=== PATIENT | male | born 1950 | race Two or more races ===

== ENCOUNTER 2017-11-19 03:07 | Emergency (ER) | payer OTHER, MEDICAID ==
[~2017-11-19] VITALS: Ht 172.7 cm; Wt 78.0 kg
--- NOTE | 2017-11-19 03:15 | NUR ---
67 YO MALE BB RA FROM HOME. C/O ABD/ FLANK PAIN. PATIENT HAS A HISTORY OF KIDNEY STONES, HE THINKS ITS A KIDNEY STONE. PATIENT ASSISTED TO ER BED, SKIN IS WARM AND DRY, RESP EVEN AND UNLABORED. AWAITING ORDERS FROM PROVIDER
[2017-11-19] MEDS ORDERED: ONDANSETRON HCL/PF 4 MG/2 ML VIAL ONE (03:16)
[2017-11-19] MEDS ORDERED: MORPHINE SULFATE INJ 4 MG/ML DISP.SYRIN ONE (03:16)
--- NOTE | 2017-11-19 03:25 | NUR ---
URINE SAMPLE OBTAINED AND SENT TO LAB
--- NOTE | 2017-11-19 03:27 | NUR ---
18G LEFT AC IV STARTED, BLOOD SAMPLE OBTAINED AND SENT TO LAB. MEDICATED PT ORDERED
[2017-11-19] MEDS ORDERED: MORPHINE SULFATE INJ 2 MG/ML DISP.SYRIN IV ONE (03:30)
[2017-11-19] MEDS ORDERED: ONDANSETRON HCL/PF 4 MG/2 ML VIAL IVP ONE (03:30)
[2017-11-19] MEDS ORDERED: IV NS 0.9% 1,000 ML BAG IV ONE (03:30)
[2017-11-19 03:39] LABS: BASOPHILS # (AUTO) 0.1 /CMM (0.0-0.2); BASOPHILS % (AUTO) 0.5 % (0.0-2.0); EOSINOPHILS % (AUTO) 0.7 % (0.0-6.0); HEMATOCRIT 49 % (39-51); HEMOGLOBIN 16.8 g/dL (13.5-17.5); LYMPHOCYTES # (AUTO) 1.9 /CMM (0.8-4.8); LYMPHOCYTES % (AUTO) 17.6 % (20.0-44.0); MEAN CORPUSCULAR HEMOGLOBIN 33 PG (26.0-33.0); MEAN CORPUSCULAR HGB CONC 34 g/dl (31.0-36.0); MEAN CORPUSCULAR VOLUME 96 fL (80-96); MONOCYTES # (AUTO) 0.5 /CMM (0.1-1.30); MONOCYTES % (AUTO) 4.8 % (2.0-12.0); NEUTROPHILS # (AUTO) 8.2 /CMM (1.8-8.9); NEUTROPHILS % (AUTO) 76.4 % (43.0-81.0); PLATELET COUNT (AUTO) 188 /CMM (150-450); RDW COEFFICIENT OF VARIATION 13.5 (11.5-15.0); RED BLOOD CELL COUNT(AUTO) 5.07 MIL/uL (4.5-6.0); WHITE BLOOD COUNT (AUTO) 10.7 K/uL (4.3-11.0)
[2017-11-19 03:41] LABS: APPEARANCE,URINE CLEAR (CLEAR); BILIRUBIN,URINE NEGATIVE (NEGATIVE); BLOOD, URINE 3+ Ery/uL (NEGATIVE); COLOR,URINE YELLOW (YELLOW); KETONES,URINE NEGATIVE (NEGATIVE); LEUKOCYTE ESTERASE ,URINE NEGATIVE (NEGATIVE); NITRITE, URINE NEGATIVE (NEGATIVE); PH,URINE 7.5 (5.0-8.0); PROTEIN,URINE TRACE mg/dl (NEGATIVE); UGLUCOSE NEGATIVE (NEGATIVE); UROBILINOGEN,URINE 0.2 EU/dL (0.2)
[2017-11-19 03:54] LABS: BACTERIA,URINE Few /HPF (None Seen); RBC,URINE 51-80 /HPF (0-2); SQUAMOUS EPITHELIAL CELL,UR Rare /HPF (None Seen); WBC,URINE 0-2 /HPF (0-3)
--- NOTE | 2017-11-19 03:54 | NUR ---
PATIENT TRANSPORTED TO CT VIA GURNEY BY RADIOLOGY TEAM
[2017-11-19 03:57] LABS: ALBUMIN 3.9 g/dL (3.4-5.0); BILIRUBIN,DIRECT 0.1 mg/dL (0.0-0.2); BILIRUBIN,TOTAL 0.7 mg/dL (0.2-1.0); CALCIUM, SERUM 8.6 mg/dL (8.5-10.1); CREATININE 1.3 mg/dL (0.6-1.3); POTASSIUM 4.3 mmol/L (3.5-5.1)
[2017-11-19 05:14] VITALS: BP 127/86
--- NOTE | 2017-11-19 05:15 | NUR ---
Patient discharged to home in stable condition. Written and verbal after care instructions given. Patient verbalizes understanding of instruction.IV removed. Catheter intact and site benign. Pressure and 4x4 applied to site. No bleeding noted. PT ambulatory with a steady gait
== END 2017-11-19 05:15 | disposition home or self-care (01) ==
LOC: ER 03:11
DX: N20.0 Calculus of kidney (principal)
CPT/HCPCS: 36415; 74176; 80048; 80076; 81001; 83690; 85025; 96374; 96375; 99285; A4606; J2270; J2405; J7030; 81000-TC; Z7610

== ENCOUNTER 2017-12-12 14:41 | Emergency (ER) | payer OTHER, MEDICAID ==
[~2017-12-12] VITALS: Ht 172.7 cm; Wt 77.1 kg
[2017-12-12 15:31] LABS: BASOPHILS # (AUTO) 0.1 /CMM (0.0-0.2); BASOPHILS % (AUTO) 0.8 % (0.0-2.0); EOSINOPHILS % (AUTO) 3.3 % (0.0-6.0); HEMATOCRIT 50 % (39-51); LYMPHOCYTES # (AUTO) 2.6 /CMM (0.8-4.8); LYMPHOCYTES % (AUTO) 32.6 % (20.0-44.0); MEAN CORPUSCULAR HEMOGLOBIN 32 PG (26.0-33.0); MEAN CORPUSCULAR HGB CONC 34 g/dl (31.0-36.0); MEAN CORPUSCULAR VOLUME 94 fL (80-96); MONOCYTES # (AUTO) 0.6 /CMM (0.1-1.30); MONOCYTES % (AUTO) 7.8 % (2.0-12.0); NEUTROPHILS # (AUTO) 4.4 /CMM (1.8-8.9); NEUTROPHILS % (AUTO) 55.5 % (43.0-81.0); PLATELET COUNT (AUTO) 199 /CMM (150-450); RDW COEFFICIENT OF VARIATION 12.9 (11.5-15.0); RED BLOOD CELL COUNT(AUTO) 5.28 MIL/uL (4.5-6.0)
[2017-12-12 15:40] LABS: APPEARANCE,URINE Clear (CLEAR); BILIRUBIN,URINE Negative (NEGATIVE); BLOOD, URINE Moderate Ery/uL (NEGATIVE); COLOR,URINE Yellow (YELLOW); KETONES,URINE Negative (NEGATIVE); LEUKOCYTE ESTERASE ,URINE Negative (NEGATIVE); NITRITE, URINE Negative (NEGATIVE); PROTEIN,URINE Negative (NEGATIVE); UGLUCOSE Negative (NEGATIVE); UROBILINOGEN,URINE 0.2 EU/dL (0.2)
[2017-12-12 15:44] LABS: BACTERIA,URINE Few /HPF (None Seen); SQUAMOUS EPITHELIAL CELL,UR Few /HPF (None Seen); WBC,URINE 0-2 /HPF (0-3)
[2017-12-12 15:56] LABS: CALCIUM, SERUM 9.1 mg/dL (8.5-10.1); POTASSIUM 3.8 mmol/L (3.5-5.1)
[2017-12-12] MEDS ORDERED: KETOROLAC TROMETHAMINE INJ 60 MG/2 ML VIAL IM ONE (16:00)
[2017-12-12] MEDS ORDERED: KETOROLAC TROMETHAMINE 15 MG/ML VIAL ONE (16:03)
== END 2017-12-12 16:14 | disposition home or self-care (01) ==
LOC: ER 14:48
DX: R31.9 Hematuria, unspecified (principal); E78.00 Pure hypercholesterolemia, unspecified; M19.90 Unspecified osteoarthritis, unspecified site; F17.210 Nicotine dependence, cigarettes, uncomplicated; Z87.442 Personal history of urinary calculi; Z60.2 Problems related to living alone
CPT/HCPCS: 36415; 80048-TC; 81000-TC; 85025-TC; J1885

== ENCOUNTER 2018-01-10 12:50 | Emergency (ER) | payer OTHER, MEDICAID ==
[~2018-01-10] VITALS: Ht 167.6 cm; Wt 77.1 kg
--- NOTE | 2018-01-10 13:00 | NUR ---
aaox3, BBRA FROM HOME FOR LEFT LOWER ABD PAIN, LEFT FLANK PAIN X 2 WEEKS H/O KIDNEY STONE. Resp is even and unlabored with NAD noted. Skin is warm and dry. Awaiting md for eval.
[2018-01-10] MEDS ORDERED: KETOROLAC TROMETHAMINE INJ 30 MG/ML VIAL ONE (13:30)
[2018-01-10] MEDS ORDERED: KETOROLAC TROMETHAMINE INJ 30 MG/ML VIAL IM ONE (13:30)
[2018-01-10 14:01] LABS: BASOPHILS # (AUTO) 0.1 /CMM (0.0-0.2); BASOPHILS % (AUTO) 1.1 % (0.0-2.0); EOSINOPHILS % (AUTO) 3.4 % (0.0-6.0); HEMATOCRIT 46 % (39-51); HEMOGLOBIN 15.7 g/dL (13.5-17.5); LYMPHOCYTES # (AUTO) 1.9 /CMM (0.8-4.8); LYMPHOCYTES % (AUTO) 22.3 % (20.0-44.0); MEAN CORPUSCULAR HEMOGLOBIN 33 PG (26.0-33.0); MEAN CORPUSCULAR HGB CONC 34 g/dl (31.0-36.0); MEAN CORPUSCULAR VOLUME 97 fL (80-96); MONOCYTES # (AUTO) 0.5 /CMM (0.1-1.30); MONOCYTES % (AUTO) 5.7 % (2.0-12.0); NEUTROPHILS # (AUTO) 5.6 /CMM (1.8-8.9); NEUTROPHILS % (AUTO) 67.5 % (43.0-81.0); PLATELET COUNT (AUTO) 209 /CMM (150-450); RDW COEFFICIENT OF VARIATION 13.9 (11.5-15.0); WHITE BLOOD COUNT (AUTO) 8.3 K/uL (4.3-11.0)
[2018-01-10 14:11] LABS: CALCIUM, SERUM 8.2 mg/dL (8.5-10.1); POTASSIUM 3.5 mmol/L (3.5-5.1)
[2018-01-10 14:57] LABS: APPEARANCE,URINE Clear (CLEAR); BILIRUBIN,URINE Negative (NEGATIVE); BLOOD, URINE Moderate Ery/uL (NEGATIVE); COLOR,URINE Yellow (YELLOW); KETONES,URINE Negative (NEGATIVE); LEUKOCYTE ESTERASE ,URINE Negative (NEGATIVE); NITRITE, URINE Negative (NEGATIVE); PROTEIN,URINE Negative (NEGATIVE); UGLUCOSE Negative (NEGATIVE); UROBILINOGEN,URINE 0.2 EU/dL (0.2)
[2018-01-10 15:05] LABS: BACTERIA,URINE Few /HPF (None Seen); SQUAMOUS EPITHELIAL CELL,UR Few /HPF (None Seen); WBC,URINE 0-2 /HPF (0-3)
--- NOTE | 2018-01-10 15:31 | NUR ---
Patient discharged to home in stable condition. Written and verbal after care instructions given. Patient verbalizes understanding of instruction.
[2018-01-10 15:33] VITALS: BP 140/78
== END 2018-01-10 15:33 | disposition home or self-care (01) ==
LOC: ER 12:51
DX: N23 Unspecified renal colic (principal); F17.200 Nicotine dependence, unspecified, uncomplicated; M19.90 Unspecified osteoarthritis, unspecified site; Z60.2 Problems related to living alone
CPT/HCPCS: 36415; 80048; 81001; 85025; 96372; 99284; 99406; A4606; J1885; 81000-TC; Z7610

== ENCOUNTER 2018-06-05 10:48 | Emergency (ER) | payer OTHER, MEDICAID ==
[~2018-06-05] VITALS: Ht 172.7 cm; Wt 76.7 kg
[2018-06-05 10:53] VITALS: BP 129/95
[2018-06-05] MEDS ORDERED: IBUPROFEN 400 MG TABLET ONE (11:08)
[2018-06-05] MEDS ORDERED: IBUPROFEN 400 MG TABLET PO ONE (11:30)
== END 2018-06-05 11:50 | disposition home or self-care (01) ==
LOC: ER 10:56
DX: S83.412A Sprain of medial collateral ligament of left knee, initial encounter (principal); F17.200 Nicotine dependence, unspecified, uncomplicated; M19.90 Unspecified osteoarthritis, unspecified site; Z87.442 Personal history of urinary calculi; Z60.2 Problems related to living alone; W01.0XXA Fall on same level from slipping, tripping and stumbling without subsequent striking against object, initial encounter; Y93.89 Activity, other specified; Y92.89 Other specified places as the place of occurrence of the external cause; Y99.8 Other external cause status
CPT/HCPCS: 73564-TC

== ENCOUNTER 2018-07-23 23:02 | Emergency (ER) | payer MEDICARE, MEDICAID ==
[~2018-07-23] VITALS: Ht 172.7 cm; Wt 75.3 kg
[2018-07-23 23:24] VITALS: BP 155/77
--- NOTE | 2018-07-23 23:25 | NUR ---
URINE SPECIMEN OBTAINED AND SENT TO THE LAB.
--- NOTE | 2018-07-23 23:25 | NUR ---
NEVIN C/O "HAVE BLOOD IN URINE SINCE 4PM" -SOB -N.V -DIZZY -ACUTE DISTRESS 0/10 PAIN.
[2018-07-23 23:38] LABS: BILIRUBIN,URINE NEGATIVE (NEGATIVE); BLOOD, URINE 3+ Ery/uL (NEGATIVE); KETONES,URINE NEGATIVE (NEGATIVE); LEUKOCYTE ESTERASE ,URINE NEGATIVE (NEGATIVE); NITRITE, URINE NEGATIVE (NEGATIVE); PROTEIN,URINE NEGATIVE (NEGATIVE); UGLUCOSE NEGATIVE (NEGATIVE); UROBILINOGEN,URINE 0.2 EU/dL (0.2)
[2018-07-23 23:48] LABS: APPEARANCE,URINE HAZY (CLEAR)
[2018-07-23 23:49] LABS: COLOR,URINE Light yellow (YELLOW)
[2018-07-23 23:54] LABS: BACTERIA,URINE None seen /HPF (None Seen); RBC,URINE 21-50 /HPF (0-2); SQUAMOUS EPITHELIAL CELL,UR Few /HPF (None Seen); WBC,URINE 0-2 /HPF (0-3)
== END 2018-07-24 00:13 | disposition home or self-care (01) ==
LOC: ER 23:05
DX: R31.9 Hematuria, unspecified (principal); F17.200 Nicotine dependence, unspecified, uncomplicated; Z87.442 Personal history of urinary calculi; Z98.890 Other specified postprocedural states; Z60.2 Problems related to living alone
CPT/HCPCS: 81000-TC

== ENCOUNTER 2019-06-07 14:16 | Emergency (ER) | payer MEDICARE, MEDICAID ==
[~2019-06-07] VITALS: Ht 170.2 cm; Wt 77.1 kg
[2019-06-07 14:39] VITALS: BP 140/73
--- NOTE | 2019-06-07 14:47 | NUR ---
PT AAOX4. AMBULATORY WITH STEADY GAIT. BIBSELF, C/O "Cough/congestion/body aches/Flu like symptoms x2 days." VSS. JHOAN FOR FOR EVAL. WILL CONTINUE TO MONITOR.
--- NOTE | 2019-06-07 15:02 | NUR ---
INF SENT TO LAB
--- NOTE | 2019-06-07 16:16 | NUR ---
PT LYSSA TO [facility].
== END 2019-06-07 16:51 | disposition home or self-care (01) ==
LOC: ER 14:16
DX: J20.9 Acute bronchitis, unspecified (principal); F17.200 Nicotine dependence, unspecified, uncomplicated; Z87.442 Personal history of urinary calculi; Z98.890 Other specified postprocedural states; Z60.2 Problems related to living alone
CPT/HCPCS: 71045-TC

== ENCOUNTER 2021-01-20 10:55 | Emergency (ER) | payer OTHER ==
[~2021-01-20] VITALS: Ht 170.2 cm; Wt 79.4 kg
--- NOTE | 2021-01-20 10:55 | NUR ---
PT BIBRA 89 FROM HOME C/O L ARM PAIN STARTED THIS MORNING. PT AAOX4. NOT IN RESPIRATORY DISTRESS, V/S STABLE, KEPT RESTED AND COMFORTABLE.WILL CONTINUE TO MONITOR.
--- NOTE | 2021-01-20 11:13 | NUR ---
AT BEDSIDE FOR EVAL.
[2021-01-20] MEDS ORDERED: NITROGLYCERIN 0.4 MG/TAB BOTTLE ONE (11:23)
[2021-01-20] MEDS ORDERED: ASPIRIN 325 MG TABLET ONE (11:23)
--- NOTE | 2021-01-20 11:25 | NUR ---
ER PHLEB AT BEDSIDE FOR BLOOD DRAW.
--- NOTE | 2021-01-20 11:29 | NUR ---
SPACE BUYER AT BEDSIDE FOR XRAY.
[2021-01-20] MEDS ORDERED: NITROGLYCERIN 0.4 MG/TAB BOTTLE SL ONE (11:30)
[2021-01-20] MEDS ORDERED: ASPIRIN 325 MG TABLET PO ONE (11:30)
[2021-01-20] MEDS ORDERED: ATOR40TA PO (11:45)
[2021-01-20] MEDS ORDERED: ERGO500093 PO (11:45)
[2021-01-20 11:49] LABS: BASOPHILS % (AUTO) 0.8 % (0.0-2.0); EOSINOPHILS % (AUTO) 2.9 % (0.0-6.0); HEMATOCRIT 48 % (39-51); HEMOGLOBIN 16.4 g/dL (13.5-17.5); LYMPHOCYTES # (AUTO) 2.2 K/uL (0.8-4.8); LYMPHOCYTES % (AUTO) 35.6 % (20.0-44.0); MEAN CORPUSCULAR HGB CONC 34 g/dl (31.0-36.0); MEAN CORPUSCULAR VOLUME 97 fL (80-96); MONOCYTES # (AUTO) 0.5 K/uL (0.1-1.30); MONOCYTES % (AUTO) 7.9 % (2.0-12.0); NEUTROPHILS # (AUTO) 3.2 K/uL (1.8-8.9); NEUTROPHILS % (AUTO) 52.8 % (43.0-81.0); PLATELET COUNT (AUTO) 186 K/uL (150-450); RED BLOOD CELL COUNT(AUTO) 4.94 MIL/uL (4.5-6.0); WHITE BLOOD COUNT (AUTO) 6.1 K/uL (4.3-11.0)
[2021-01-20 11:58] LABS: CALCIUM, SERUM 8.3 mg/dL (8.5-10.1); CREATININE 0.8 mg/dL (0.6-1.3); POTASSIUM 3.6 mmol/L (3.5-5.1)
[2021-01-20 12:03] LABS: ALBUMIN 3.6 g/dL (3.4-5.0); BILIRUBIN,DIRECT 0.2 mg/dL (0.0-0.2); BILIRUBIN,TOTAL 0.7 mg/dL (0.2-1.0); TOTAL PROTEIN, SERUM 6.7 g/dL (6.4-8.2)
--- NOTE | 2021-01-20 12:18 | NUR ---
MOVE SHEET SUBMITTED AND CALLED FOR TELE BED.
--- NOTE | 2021-01-20 13:30 | NUR ---
SPOKED TO [employer] BUS TRANSPORTATION MANAGER. WILL CALL BACK FOR TRANSFER INFO TO [facility].
[2021-01-20 14:32] VITALS: BP 142/71
--- NOTE | 2021-01-20 14:32 | NUR ---
Patient does not wish to proceed with medical care recommended by Dr. Rico. Patient given information related to possible complications, up to and including , which could occur as a result of leaving the hospital at this time. Patient verbalizes understanding of risks involved due to leaving against medical advice. Patient has signed AMA form.
== END 2021-01-20 14:33 | disposition left against medical advice (07) ==
LOC: ER 11:00
DX: M79.602 Pain in left arm (principal); F17.200 Nicotine dependence, unspecified, uncomplicated; E78.00 Pure hypercholesterolemia, unspecified; R03.0 Elevated blood-pressure reading, without diagnosis of hypertension; R91.8 Other nonspecific abnormal finding of lung field; Z20.822 Contact with and (suspected) exposure to COVID-19; M19.90 Unspecified osteoarthritis, unspecified site; Z79.899 Other long term (current) drug therapy
CPT/HCPCS: 36415; 71045; 80048; 80076; 84484; 85025; 87081; 87426; 93005; 99285; C9803

== ENCOUNTER 2022-01-13 03:42 | Emergency (ER) | payer OTHER ==
[~2022-01-13] VITALS: Ht 165.1 cm; Wt 80.7 kg
[~2022-01-13 03:42] MED LIST: ATOR40TA PO; ERGO500093 PO
--- NOTE | 2022-01-13 03:53 | NUR ---
CRISTY FROM HOME C/O PER PATIENT "I WOKE UP AND FELT ARM PAIN AND NECK PAIN, SO I CALLED 911" PT STATES NAN ARM PAIN. PT A/OX4. TOLERATING R/A WELL WITH NO SOB. SAFETY MEASURES IN PLACE.
[2022-01-13] MEDS ORDERED: HYDROCODONE/APAP 5/325MG TABLET PO ONE (04:00)
--- NOTE | 2022-01-13 04:07 | NUR ---
taken to CT
[2022-01-13] MEDS ORDERED: HYDROCODONE/APAP 5/325MG TABLET ONE (04:13)
--- NOTE | 2022-01-13 04:46 | NUR ---
Awaitng ride from granddaughter for D/C. Patient given written and verbal instrructions, verbalizes understanding of instruction. PT ambulatory with a steady gait
[2022-01-13 04:48] VITALS: BP 145/81
--- NOTE | 2022-01-13 05:16 | NUR ---
Patient discharged to home in stable condition with granddaughter. Written and verbal after care instructions given. Patient verbalizes understanding of instruction. PT ambulatory with a steady gait
== END 2022-01-13 05:16 | disposition home or self-care (01) ==
LOC: ER 03:44
DX: M50.30 Other cervical disc degeneration, unspecified cervical region (principal); M19.90 Unspecified osteoarthritis, unspecified site; E78.00 Pure hypercholesterolemia, unspecified; F17.200 Nicotine dependence, unspecified, uncomplicated; Z98.890 Other specified postprocedural states; Z79.899 Other long term (current) drug therapy
CPT/HCPCS: 72125-TC

== ENCOUNTER 2022-01-20 09:45 | Emergency (ER) | payer OTHER ==
[~2022-01-20] VITALS: Ht 170.2 cm; Wt 78.9 kg
--- NOTE | 2022-01-20 10:18 | NUR ---
IV GAUGE 20 L HAND
--- NOTE | 2022-01-20 10:18 | NUR ---
BIB DAUGHTER, C/O PAIN BACK AND NECK AREA AND COLD GIVEN TWO WARM BLANKETS
[2022-01-20] MEDS ORDERED: HYDROCODONE/APAP 5/325MG TABLET ONE (10:38)
[2022-01-20] MEDS ORDERED: KETOROLAC TROMETHAMINE INJ 30 MG/ML VIAL ONE (10:39)
[2022-01-20] MEDS ORDERED: CYCLOBENZAPRINE 10 MG TABLET ONE (10:39)
[2022-01-20] MEDS ORDERED: KETOROLAC TROMETHAMINE INJ 60 MG/2 ML VIAL IM ONE (11:00)
[2022-01-20] MEDS ORDERED: CYCLOBENZAPRINE 10 MG TABLET PO ONE (11:00)
[2022-01-20] MEDS ORDERED: HYDROCODONE/APAP 5/325MG TABLET PO ONE (11:00)
[2022-01-20] MEDS ORDERED: CYCL5TAB PO (12:11)
[2022-01-20 12:30] VITALS: BP 181/86
== END 2022-01-20 12:30 | disposition home or self-care (01) ==
LOC: ER 09:50
DX: M47.812 Spondylosis without myelopathy or radiculopathy, cervical region (principal); M19.90 Unspecified osteoarthritis, unspecified site; Z98.890 Other specified postprocedural states; Z79.899 Other long term (current) drug therapy
CPT/HCPCS: 99283; 96372; J1885

== ENCOUNTER 2022-11-16 08:27 | Inpatient (IN) | payer OTHER ==
[~2022-11-16] VITALS: Ht 170.2 cm; Wt 78.5 kg
[~2022-11-16 08:27] MED LIST changes: +CYCL5TAB PO
--- NOTE | 2022-11-16 08:40 | NUR ---
at bedside for eval
--- NOTE | 2022-11-16 08:42 | NUR ---
blood sample obtained sent to lab
--- NOTE | 2022-11-16 08:42 | NUR ---
established iv line 18 g left forearm. infusing well
[2022-11-16] MEDS ORDERED: IV NS 0.9% 1,000 ML BAG IV ONE (09:00)
--- NOTE | 2022-11-16 09:17 | NUR ---
RAPID / COVID SWAB TAKEN SENT TO LAB
[2022-11-16 09:19] LABS: BASOPHILS # (AUTO) 0.1 K/uL (0.0-0.2); BASOPHILS % (AUTO) 0.7 % (0.0-2.0); EOSINOPHILS % (AUTO) 0.3 % (0.0-6.0); HEMATOCRIT 50 % (39-51); HEMOGLOBIN 16.6 g/dL (13.5-17.5); LYMPHOCYTES # (AUTO) 2.4 K/uL (0.8-4.8); LYMPHOCYTES % (AUTO) 19.3 % (20.0-44.0); MEAN CORPUSCULAR HGB CONC 33 g/dl (31.0-36.0); MEAN CORPUSCULAR VOLUME 97 fL (80-96); MONOCYTES # (AUTO) 0.7 K/uL (0.1-1.30); MONOCYTES % (AUTO) 5.6 % (2.0-12.0); NEUTROPHILS # (AUTO) 9.1 K/uL (1.8-8.9); NEUTROPHILS % (AUTO) 74.1 % (43.0-81.0); PLATELET COUNT (AUTO) 179 K/uL (150-450); RED BLOOD CELL COUNT(AUTO) 5.14 MIL/uL (4.5-6.0); WHITE BLOOD COUNT (AUTO) 12.3 K/uL (4.3-11.0)
[2022-11-16 09:34] LABS: CALCIUM, SERUM 8.9 mg/dL (8.5-10.1); CARBON DIOXIDE 22 mmol/L (21-32); CHLORIDE 107 mmol/L (98-107); CREATININE 1.4 mg/dL (0.6-1.3); GLUCOSE 137 mg/dL (74-106); POTASSIUM 3.4 mmol/L (3.5-5.1); SODIUM SERUM 140 mmol/L (136-145); UREA NITROGEN, BLOOD 14 mg/dL (7-18)
[2022-11-16 09:39] LABS: ALANINE AMINOTRANSFERASE 33 U/L (12-78); ALBUMIN 3.8 g/dL (3.4-5.0); ALKALINE PHOSPHATASE 90 U/L (46-116); ASPARTATE AMINOTRANSFERASE 23 U/L (15-37); BILIRUBIN,DIRECT 0.2 mg/dL (0.0-0.2); TOTAL PROTEIN, SERUM 6.9 g/dL (6.4-8.2)
--- NOTE | 2022-11-16 09:43 | NUR ---
XRAY AT BEDSIDE
[2022-11-16] MEDS ORDERED: ASPIRIN 325 MG TABLET ONE (12:23)
[2022-11-16 12:27] LABS: BILIRUBIN,URINE NEGATIVE (NEGATIVE); COLOR,URINE YELLOW (YELLOW); LEUKOCYTE ESTERASE ,URINE NEGATIVE (NEGATIVE); NITRITE, URINE NEGATIVE (NEGATIVE); PROTEIN,URINE NEGATIVE (NEGATIVE); UGLUCOSE NEGATIVE (NEGATIVE); UROBILINOGEN,URINE 0.2 EU/dL (0.2)
[2022-11-16] MEDS ORDERED: ASPIRIN 325 MG TABLET PO ONE (12:30)
[2022-11-16] MEDS ORDERED: ENOXAPARIN SODIUM 80 MG/0.8 ML DISP.SYRIN SQ ONE ×2 (14:00→14:11)
--- NOTE | 2022-11-16 14:15 | NUR ---
ADDMISSTION NOTE RECEIVED PATIENT FROM ED AT THIS TIME. 72 YEAR OLD MALE A/OX4 AND AMBULATORY. PT HAS IV 18G IN L WRIST INTACT AND PATENT. ADMITTING DX OF NSTEMI. TELE MONITOR IN PLACE AND READING...... PT DENIES PAIN AT THIS TIME AND NO CHEST PAIN. NO SIGNS OF SOB AND DISTRESS. ABLE TO MAKE NEEDS KNOWN. WILL CONTINUE TO MONITOR.
--- NOTE | 2022-11-16 14:40 | NUR ---
PSYCHIATRIC CALLED SAGGER PREPARER PAGED.
--- NOTE | 2022-11-16 14:47 | NUR ---
ROOM 313-1 ADMITTING AWARE
--- NOTE | 2022-11-16 15:08 | NUR ---
REPORT GIVEN TO NATY GARCIA
--- NOTE | 2022-11-16 15:29 | NUR ---
MOVED TO INPATIENT ROOM SAFELY PER ACLS PROTOCOL
[2022-11-16] MEDS ORDERED: ENOXAPARIN SODIUM 40 MG/0.4 ML DISP.SYRIN SQ SCH (15:30)
[2022-11-16] MEDS ORDERED: ACETAMINOPHEN 325 MG TABLET PO PRN (15:30)
[2022-11-16] MEDS ORDERED: ONDANSETRON HCL/PF 4 MG/2 ML VIAL IVP PRN (15:30)
[2022-11-16 16:00] VITALS: BP 149/82; TEMP 97.5
[2022-11-16] MEDS: ENOXAPARIN SODIUM 80 MG/0.8 ML DISP.SYRIN SQ SCH ×2 (16:00→16:32)
--- NOTE | 2022-11-16 16:15 | NUR ---
RECEIVED CRITICAL LAB TROPONIN RESULTS FROM [phone] TO [phone]) DR GABE TRINH.
--- NOTE | 2022-11-16 19:40 | NUR ---
SURGICAL TERRITORY MANAGER OPENING NOTE PATIENT IS SITTING IN BED WATCHING TV. PT IS ALERT AND ORIENTED, AO X 4. PT IS ON RA, TOLERATED WELL. NO S/S OF DISTRESS OR SOB. PT IS ON EXTERNAL LOGISTICS MANAGEMENT SPECIALIST, ON THE MONITOR, PT IS SB / SR WITH HR BETWEEN 50S TO 60S. PT IS ASYMPTOMATIC. IV ACCESS IS AT PT'S L WRIST, #18G, SL. FLUSHED WELL WITH 10 CC OF NS. IV SITE IS PATENT AND INTACT. SAFETY MEASURES ARE IN PLACED: BED IN LOWEST AND LOCKED POSITION; SIDE RAILS UP X 2; CALL LIGHT AND TABLE ARE WITHIN REACH. WILL CONTINUE MONITORING THE PT AND PROVIDE THE CARE PT NEEDS.
[2022-11-16 20:00] VITALS: BP 157/85; TEMP 97.7
[2022-11-16] MEDS ORDERED: ATORVASTATIN 10 MG TABLET PO SCH (22:00)
--- NOTE | 2022-11-16 23:27 | NUR ---
MARKETING STRATEGY LEAD NOTE MS RN NOTE REPORT GIVEN TO JOSE DIXON.
--- NOTE | 2022-11-16 23:28 | NUR ---
swatch clerk Opening Note Received patient in bed; awake, alert and oriented x 4. On room air; tolerating well. Breathing even and nonlabored. Not in any form of respiratory or cardiac distress. No c/o pain or discomfort. On telemetry monitoring with reading of sinus bradycardia HR-55bpm. With IV access on left wrist 18g; patent, intact and saline locked. Able to make needs known. Fall and safety measures implemented: call light and table within reach, side rails up x 2, bed in lowest locked position. Will continue to monitor throughout shift.
[2022-11-16] MEDS ORDERED: POTASSIUM CHLORIDE 20 MEQ TAB.PRT.SR PO ONE (23:30)
--- NOTE | 2022-11-16 23:46 | NUR ---
RN Note Patient's potassium level is 3.4. Potassium chloride 20 mEq 1 tab held; patient refused to take med. Patient verbalized "my numbers are perfect. I don't need that medication." Explained risks and benefits of following medical regimen x 3; patient still refused.
[2022-11-17] VITALS: BP 143/67; TEMP 97.2
[2022-11-17 04:00] VITALS: BP 125/63; TEMP 97.8
[2022-11-17] MEDS: ENOXAPARIN SODIUM 80 MG/0.8 ML DISP.SYRIN SQ SCH (04:00)
--- NOTE | 2022-11-17 04:35 | NUR ---
RN Note Lovenox 80 mg held; patient refused to receive anticoagulant. Explained risks and benefits of following medical regimen x 3; still refused to receive medication. Will continue to monitor
--- NOTE | 2022-11-17 06:52 | NUR ---
business partner Closing Note Patient in bed; awake, a/o x 4. Stable on room air; tolerating well. Breathing equal and unlabored. In no acute distress. No c/o pain or discomfort. On telemetry monitoring with reading of sinus rhythm HR-67 bpm. With IV access on left wrist 18g; patent, intact and saline locked. All needs met. Fall and safety measures maintained. Endorsed to incoming nurse for continuity of care.
--- NOTE | 2022-11-17 07:00 | NUR ---
DIRECTOR OF DANCE OPENING NOTES: PT IN BED AWAKE, ALERT AND ORIENTED X 4 AND NOTED WITH HEARING AIDE ON RIGHT EAR. NO SOB OR CARDIAC DISTRESS NOTED. ON BLOOD BANK TECHNICIAN WITH CURRENT READING OF SINUS RHYTHM @ 67BPM. IV ACCESS ON L WRIST GAUGE 18 PATENT INTACT AND SALINE LOCKED. SAFETY MEASURES MAINTAINED: BED LOCKED AND IN LOWEST POSITION, SIDE RAILS UP X 2. CALL LIGHT IN EASY REACH AND WILL MONITOR PT ACCORDINGLY.
[2022-11-17 07:04] LABS: BASOPHILS % (AUTO) 0.6 % (0.0-2.0); EOSINOPHILS % (AUTO) 1.5 % (0.0-6.0); HEMATOCRIT 46 % (39-51); HEMOGLOBIN 15.2 g/dL (13.5-17.5); LYMPHOCYTES # (AUTO) 2.1 K/uL (0.8-4.8); LYMPHOCYTES % (AUTO) 27.7 % (20.0-44.0); MEAN CORPUSCULAR HGB CONC 33 g/dl (31.0-36.0); MEAN CORPUSCULAR VOLUME 96 fL (80-96); MONOCYTES # (AUTO) 0.7 K/uL (0.1-1.30); MONOCYTES % (AUTO) 9.1 % (2.0-12.0); NEUTROPHILS # (AUTO) 4.6 K/uL (1.8-8.9); NEUTROPHILS % (AUTO) 61.1 % (43.0-81.0); PLATELET COUNT (AUTO) 148 K/uL (150-450); RED BLOOD CELL COUNT(AUTO) 4.76 MIL/uL (4.5-6.0); WHITE BLOOD COUNT (AUTO) 7.5 K/uL (4.3-11.0)
[2022-11-17 07:25] LABS: CALCIUM, SERUM 8.7 mg/dL (8.5-10.1); MAGNESIUM 2.3 mg/dL (1.8-2.4); PHOSPHORUS 2.7 mg/dL (2.5-4.9); POTASSIUM 3.5 mmol/L (3.5-5.1)
--- NOTE | 2022-11-17 08:00 | NUR ---
RN NOTES: LINUX ADMIN ENGINEER HANDED TO LILIANA VELA.
[2022-11-17] MEDS ORDERED: ASPIRIN 81 MG TAB.CHEW PO SCH (09:00)
--- NOTE | 2022-11-17 09:00 | NUR ---
AMA RN NOTES: PT SIGNED AMA FORM. PT AWAKE, ALERT AND ORIENTED X 4 AND ABLE TO MAKE NEEDS KNOWN. NOTED WITH RIGHT HEARING AIDE AND WITH BIG SANDY. NO SOB OR CARDIAC DISTRESS NOTED. EXPLAINED THE RISK AND BENEFITS OF LEAVING AGAINST MEDICAL ADVICE. EXPLAINED HIS LABS AUDI THE TROP IS VERY HIGH AND HAVE ABNORMAL IMAGING. RN GAVE COPIES OF HIS LABS AND IMAGING. PT STILL REFUSED TO STAY IN THE HOSPITAL. PT ACCOMPANIED BY INSTRUMENT MAN AND EXPLAINED IT TO HER. REMOVED IV ACCESS AND IDENTIFICATION. PT LEFT THE UNIT AMBULATORY, OFFERED WHEELCHAIR-PT REFUSED. PT LEFT THE UNIT STABLE.DR BERNAL AND DR ANTHONY MADE AWARE.
== END 2022-11-17 09:00 | disposition left against medical advice (07) | DRG 280 ==
LOC: ER 08:35 → TELE 15:02
PROVIDERS: ADMIT Nurse Practitioner Acute Care; ATTEND Nurse Practitioner Acute Care
DX: I21.4 Non-ST elevation (NSTEMI) myocardial infarction (principal); N17.0 Acute kidney failure with tubular necrosis; E87.20 Acidosis, unspecified; E86.0 Dehydration; R55 Syncope and collapse; D72.829 Elevated white blood cell count, unspecified; E78.5 Hyperlipidemia, unspecified; M19.90 Unspecified osteoarthritis, unspecified site; R53.1 Weakness; Z20.822 Contact with and (suspected) exposure to COVID-19
CPT/HCPCS: 36415; 71045-TC; 80048-TC; 80061-TC; 80076-TC; 82962-TC; 83605-TC; 83735-TC; 83880; 84100-TC; 84484-TC; 85025-TC; 87040-TC; 87081-TC; 93307-TC; C9803; G0378; J1650

== ENCOUNTER → 2023-10-02 | Emergency (ER) | payer OTHER, MEDICAID ==
[~2023-10-02] VITALS: Ht 170.2 cm; Wt 72.1 kg
[2023-10-02 18:35] VITALS: BP 148/89; TEMP 97.9; O2SAT 97
[2023-10-02 19:22] LABS: BASOPHILS % (AUTO) 0.5 % (0.0-2.0); EOSINOPHILS # (AUTO) 0.1 K/uL (0.0-0.7); EOSINOPHILS % (AUTO) 1.4 % (0.0-6.0); HEMATOCRIT 49 % (39-51); HEMOGLOBIN 16.3 g/dL (13.5-17.5); LYMPHOCYTES # (AUTO) 2.1 K/uL (0.8-4.8); LYMPHOCYTES % (AUTO) 28.9 % (20.0-44.0); MEAN CORPUSCULAR HEMOGLOBIN 32 PG (26.0-33.0); MEAN CORPUSCULAR HGB CONC 34 g/dl (31.0-36.0); MEAN CORPUSCULAR VOLUME 96 fL (80-96); MONOCYTES # (AUTO) 0.5 K/uL (0.1-1.30); MONOCYTES % (AUTO) 6.9 % (2.0-12.0); NEUTROPHILS # (AUTO) 4.6 K/uL (1.8-8.9); NEUTROPHILS % (AUTO) 62.3 % (43.0-81.0); PLATELET COUNT (AUTO) 152 K/uL (150-450); RED BLOOD CELL COUNT(AUTO) 5.05 MIL/uL (4.5-6.0); RED CELL DISTRIBUTION WIDTH 13.6 % (11.5-15.0); WHITE BLOOD COUNT (AUTO) 7.4 K/uL (4.3-11.0)
[2023-10-02 19:31] LABS: CALCIUM, SERUM 8.8 mg/dL (8.5-10.1); CARBON DIOXIDE 24 mmol/L (21-32); CHLORIDE 106 mmol/L (98-107); CREATININE 0.8 mg/dL (0.6-1.3); GLUCOSE 133 mg/dL (74-106); POTASSIUM 3.4 mmol/L (3.5-5.1); SODIUM SERUM 138 mmol/L (136-145); UREA NITROGEN, BLOOD 13 mg/dL (7-18)
[2023-10-02 19:37] LABS: ALANINE AMINOTRANSFERASE 31 U/L (12-78); ALBUMIN 3.8 g/dL (3.4-5.0); ALKALINE PHOSPHATASE 85 U/L (46-116); ASPARTATE AMINOTRANSFERASE 22 U/L (15-37); BILIRUBIN,DIRECT 0.2 mg/dL (0.0-0.2); LIPASE 35 U/L (16-77); TOTAL PROTEIN, SERUM 6.8 g/dL (6.4-8.2)
== END | disposition left against medical advice (07) ==
LOC: ER 16:10
DX: R53.1 Weakness (principal); M19.90 Unspecified osteoarthritis, unspecified site; F17.200 Nicotine dependence, unspecified, uncomplicated; Z87.442 Personal history of urinary calculi
CPT/HCPCS: 36415; 80048-TC; 80076-TC; 83690-TC; 84484-TC; 85025-TC

== ENCOUNTER 2023-10-20 08:54 | Emergency (ER) | payer MEDICAID, OTHER ==
[~2023-10-20] VITALS: Ht 170.2 cm; Wt 74.8 kg
[2023-10-20 09:32] VITALS: BP 143/94; TEMP 98.3; O2SAT 96
== END 2023-10-20 09:46 | disposition home or self-care (01) ==
LOC: ER 09:04
DX: S20.222A Contusion of left back wall of thorax, initial encounter (principal); M19.90 Unspecified osteoarthritis, unspecified site; F17.200 Nicotine dependence, unspecified, uncomplicated; Z87.442 Personal history of urinary calculi; W18.30XA Fall on same level, unspecified, initial encounter; Y93.89 Activity, other specified; Y92.89 Other specified places as the place of occurrence of the external cause; Y99.8 Other external cause status

== ENCOUNTER 2023-12-20 05:05 | Inpatient (IN) | payer OTHER, MEDICAID ==
[~2023-12-20] VITALS: Ht 165.1 cm; Wt 68.0 kg
[2023-12-20 06:19] LABS: BASOPHILS % (AUTO) 0.4 % (0.0-2.0); EOSINOPHILS # (AUTO) 0.1 K/uL (0.0-0.7); EOSINOPHILS % (AUTO) 2.2 % (0.0-6.0); HEMATOCRIT 49 % (39-51); HEMOGLOBIN 16.4 g/dL (13.5-17.5); LYMPHOCYTES # (AUTO) 1.4 K/uL (0.8-4.8); LYMPHOCYTES % (AUTO) 25.7 % (20.0-44.0); MEAN CORPUSCULAR HEMOGLOBIN 33 PG (26.0-33.0); MEAN CORPUSCULAR HGB CONC 34 g/dl (31.0-36.0); MEAN CORPUSCULAR VOLUME 97 fL (80-96); MONOCYTES # (AUTO) 0.5 K/uL (0.1-1.30); MONOCYTES % (AUTO) 8.9 % (2.0-12.0); NEUTROPHILS # (AUTO) 3.4 K/uL (1.8-8.9); NEUTROPHILS % (AUTO) 62.8 % (43.0-81.0); PLATELET COUNT (AUTO) 147 K/uL (150-450); RED BLOOD CELL COUNT(AUTO) 5.03 MIL/uL (4.5-6.0); RED CELL DISTRIBUTION WIDTH 13.8 % (11.5-15.0); WHITE BLOOD COUNT (AUTO) 5.4 K/uL (4.3-11.0)
[2023-12-20 06:31] LABS: ALANINE AMINOTRANSFERASE 31 U/L (12-78); ALBUMIN 3.3 g/dL (3.4-5.0); ALKALINE PHOSPHATASE 106 U/L (46-116); ASPARTATE AMINOTRANSFERASE 13 U/L (15-37); BILIRUBIN,DIRECT 0.3 mg/dL (0.0-0.2); BILIRUBIN,TOTAL 1.1 mg/dL (0.2-1.0); CALCIUM, SERUM 8.7 mg/dL (8.5-10.1); CARBON DIOXIDE 26 mmol/L (21-32); CHLORIDE 107 mmol/L (98-107); CREATININE 0.8 mg/dL (0.6-1.3); GLUCOSE 114 mg/dL (74-106); PARTIAL THROMBOPLASTIN TIME 28.8 SEC (24.3-34.3); POTASSIUM 3.7 mmol/L (3.5-5.1); PROTHROMBIN TIME 10.6 SECS (9.2-11.1); SODIUM SERUM 141 mmol/L (136-145); TOTAL PROTEIN, SERUM 6.6 g/dL (6.4-8.2); UREA NITROGEN, BLOOD 15 mg/dL (7-18)
[2023-12-20 07:00] VITALS: BP 157/89; TEMP 98.1; O2SAT 94
[2023-12-20 07:35] VITALS: O2SAT 96
[2023-12-20] MEDS ORDERED: ACET-2030 PO (07:53)
[2023-12-20] MEDS ORDERED: ATOR80TA PO (07:53)
[2023-12-20 08:00] VITALS: BP 168/98; TEMP 98.1; O2SAT 96
[2023-12-20 16:00] VITALS: BP 152/82; TEMP 97.7; O2SAT 94
[2023-12-20 16:29] VITALS: BP 154/94; TEMP 98.6; O2SAT 96
[2023-12-20 20:00] VITALS: BP 145/94; TEMP 98.6; O2SAT 92
[2023-12-20] MEDS ORDERED: ZOLPIDEM TARTRATE 5 MG TABLET PO PRN (20:00)
[2023-12-20] MEDS ORDERED: Z GUARD REMEDY 4 OZ OINT TP PRN (20:00)
[2023-12-20] MEDS ORDERED: ACETAMINOPHEN ES 500 MG TABLET PO PRN (20:00)
[2023-12-20] MEDS ORDERED: ACETAMINOPHEN 325 MG TABLET PO PRN (20:00)
[2023-12-20] MEDS ORDERED: MAG HYDROX/AL HYDROX/SIMETH 30 ML UDC PO PRN (20:00)
[2023-12-20] MEDS ORDERED: ONDANSETRON HCL/PF 4 MG/2 ML VIAL IVP PRN (20:00)
[2023-12-20] MEDS ORDERED: MAGNESIUM HYDROXIDE 30 ML UDC PO PRN (20:00)
[2023-12-20] MEDS: ATORVASTATIN 40 MG TABLET PO SCH (21:46)
[2023-12-21] VITALS: BP 147/77; TEMP 98.2; O2SAT 94
[2023-12-21 04:00] VITALS: BP 132/83; TEMP 97.7; O2SAT 94
[2023-12-21 04:11] VITALS: BP 132/83; TEMP 97.7
[2023-12-21 07:30] VITALS: BP 157/88; TEMP 98.1; O2SAT 91
[2023-12-21 07:40] LABS: BASOPHILS % (AUTO) 0.6 % (0.0-2.0); EOSINOPHILS # (AUTO) 0.1 K/uL (0.0-0.7); EOSINOPHILS % (AUTO) 1.4 % (0.0-6.0); HEMATOCRIT 47 % (39-51); HEMOGLOBIN 16.4 g/dL (13.5-17.5); LYMPHOCYTES # (AUTO) 1.7 K/uL (0.8-4.8); MEAN CORPUSCULAR HEMOGLOBIN 33 PG (26.0-33.0); MEAN CORPUSCULAR HGB CONC 35 g/dl (31.0-36.0); MEAN CORPUSCULAR VOLUME 96 fL (80-96); MONOCYTES # (AUTO) 0.6 K/uL (0.1-1.30); MONOCYTES % (AUTO) 8.8 % (2.0-12.0); NEUTROPHILS # (AUTO) 4.2 K/uL (1.8-8.9); NEUTROPHILS % (AUTO) 63.2 % (43.0-81.0); PLATELET COUNT (AUTO) 152 K/uL (150-450); RED BLOOD CELL COUNT(AUTO) 4.94 MIL/uL (4.5-6.0); WHITE BLOOD COUNT (AUTO) 6.7 K/uL (4.3-11.0)
[2023-12-21 07:45] LABS: CALCIUM, SERUM 8.7 mg/dL (8.5-10.1); CARBON DIOXIDE 26 mmol/L (21-32); CHLORIDE 107 mmol/L (98-107); CREATININE 0.9 mg/dL (0.6-1.3); GLUCOSE 111 mg/dL (74-106); MAGNESIUM 2.1 mg/dL (1.8-2.4); POTASSIUM 3.5 mmol/L (3.5-5.1); SODIUM SERUM 141 mmol/L (136-145); UREA NITROGEN, BLOOD 19 mg/dL (7-18)
[2024-01-01] MEDS ORDERED: CARV6.252 PO (09:36)
== END 2023-12-21 09:00 | disposition left against medical advice (07) | DRG 312 ==
LOC: ER 05:09 → MERGE 07:29 → TELE 07:29 → MED 12-21 08:43
PROVIDERS: ADMIT Student in an Organized Health Care Education/Training Program; ATTEND Student in an Organized Health Care Education/Training Program
DX: R55 Syncope and collapse (principal); E44.1 Mild protein-calorie malnutrition; E86.0 Dehydration; D69.6 Thrombocytopenia, unspecified; E78.5 Hyperlipidemia, unspecified; I10 Essential (primary) hypertension; W19.XXXA Unspecified fall, initial encounter; Y93.9 Activity, unspecified; Y92.009 Unspecified place in unspecified non-institutional (private) residence as the place of occurrence of the external cause; Z68.25 Body mass index [BMI] 25.0-25.9, adult; Z53.29 Procedure and treatment not carried out because of patient's decision for other reasons; E80.6 Other disorders of bilirubin metabolism
CPT/HCPCS: 36415; 70450-TC; 71045-TC; 80048-TC; 80076-TC; 83735-TC; 84100-TC; 84443-TC; 84484-TC; 85025-TC; 85730-TC; G0378

== ENCOUNTER 2023-12-24 09:40 | Inpatient (IN) | payer OTHER ==
[~2023-12-24] VITALS: Ht 165.1 cm; Wt 74.4 kg
[2023-12-24] VITALS (21 sets, daily range): BP systolic 115–150; BP diastolic 62–125; TEMP 98.2–98.8; O2SAT 91–99
[~2023-12-24 09:40] MED LIST changes: +ACET-2030 PO; +ATOR80TA PO
[2023-12-24 11:12] LABS: BASOPHILS % (AUTO) 0.4 % (0.0-2.0); HEMATOCRIT 52 % (39-51); HEMOGLOBIN 17.7 g/dL (13.5-17.5); LYMPHOCYTES # (AUTO) 0.5 K/uL (0.8-4.8); LYMPHOCYTES % (AUTO) 4.7 % (20.0-44.0); MEAN CORPUSCULAR HEMOGLOBIN 33 PG (26.0-33.0); MEAN CORPUSCULAR HGB CONC 34 g/dl (31.0-36.0); MEAN CORPUSCULAR VOLUME 96 fL (80-96); MONOCYTES # (AUTO) 0.7 K/uL (0.1-1.30); MONOCYTES % (AUTO) 6.6 % (2.0-12.0); NEUTROPHILS % (AUTO) 88.3 % (43.0-81.0); PLATELET COUNT (AUTO) 146 K/uL (150-450); RED BLOOD CELL COUNT(AUTO) 5.38 MIL/uL (4.5-6.0); RED CELL DISTRIBUTION WIDTH 14.3 % (11.5-15.0); WHITE BLOOD COUNT (AUTO) 10.2 K/uL (4.3-11.0)
[2023-12-24 11:22] LABS: APPEARANCE,URINE SLIGHTLY CLOUDY (CLEAR); BILIRUBIN,URINE 1+ (NEGATIVE); BLOOD, URINE 3+ Ery/uL (NEGATIVE); COLOR,URINE DARK YELLOW (YELLOW); KETONES,URINE TRACE mg/dL (NEGATIVE); LEUKOCYTE ESTERASE ,URINE NEGATIVE (NEGATIVE); NITRITE, URINE NEGATIVE (NEGATIVE); PROTEIN,URINE 1+ mg/dl (NEGATIVE); UGLUCOSE NEGATIVE (NEGATIVE)
[2023-12-24 11:22] LABS: INR 1.03 (0.91-1.10); PARTIAL THROMBOPLASTIN TIME 25.1 SEC (24.3-34.3); PROTHROMBIN TIME 10.9 SECS (9.2-11.1)
[2023-12-24 11:30] LABS: CALCIUM, SERUM 9.3 mg/dL (8.5-10.1); CARBON DIOXIDE 23 mmol/L (21-32); CHLORIDE 103 mmol/L (98-107); CREATININE 1.2 mg/dL (0.6-1.3); GLUCOSE 131 mg/dL (74-106); POTASSIUM 4.2 mmol/L (3.5-5.1); SODIUM SERUM 139 mmol/L (136-145); UREA NITROGEN, BLOOD 23 mg/dL (7-18)
[2023-12-24 11:34] LABS: ALANINE AMINOTRANSFERASE 187 U/L (12-78); ALBUMIN 3.5 g/dL (3.4-5.0); ALKALINE PHOSPHATASE 217 U/L (46-116); ASPARTATE AMINOTRANSFERASE 170 U/L (15-37); BILIRUBIN,DIRECT 0.5 mg/dL (0.0-0.2); BILIRUBIN,TOTAL 1.8 mg/dL (0.2-1.0); TOTAL PROTEIN, SERUM 7.5 g/dL (6.4-8.2)
[2023-12-24 11:38] LABS: LACTIC ACID 2.4 mmol/L (0.4-2.0)
[2023-12-24 11:51] LABS: ADD URINE CULTURE NO; BACTERIA,URINE Rare /HPF (None Seen); MUCUS,URINE Moderate /LPF (None Seen); RBC,URINE 51-80 /HPF (0-2); SQUAMOUS EPITHELIAL CELL,UR Few /HPF (None Seen); WBC,URINE 0-2 /HPF (0-3)
[2023-12-24] MEDS ORDERED: ENOXAPARIN SODIUM 80 MG/0.8 ML DISP.SYRIN SQ ONE (13:04)
[2023-12-24] MEDS ORDERED: ASPIRIN 300 MG/SUPP.RECT RC ONE (13:04)
[2023-12-24] MEDS: ASPIRIN 300 MG/SUPP.RECT RC ONE (13:06)
[2023-12-24] MEDS: ENOXAPARIN SODIUM 80 MG/0.8 ML DISP.SYRIN SQ ONE (13:18)
[2023-12-24] MEDS ORDERED: ACETAMINOPHEN 325 MG TABLET PO PRN (14:00)
[2023-12-24] MEDS ORDERED: Z GUARD REMEDY 4 OZ OINT TP PRN (14:00)
[2023-12-24] MEDS ORDERED: MORPHINE SULFATE INJ 2 MG/ML DISP.SYRIN IV PRN (14:00)
[2023-12-24] MEDS ORDERED: ONDANSETRON HCL/PF 4 MG/2 ML VIAL IVP PRN (14:00)
[2023-12-24] MEDS ORDERED: MAG HYDROX/AL HYDROX/SIMETH 30 ML UDC PO PRN (14:00)
[2023-12-24] MEDS ORDERED: MAGNESIUM HYDROXIDE 30 ML UDC PO PRN (14:00)
[2023-12-24] MEDS: IV NS 0.9% 1,000 ML IV PRN (15:33)
[2023-12-24] MEDS: PANTOPRAZOLE 40 MG VIAL IV SCH (15:35)
[2023-12-24 16:18] LABS: THYROID STIMULATING HORMONE 1.72 uIU/mL (0.358-3.74)
[2023-12-24] MEDS ORDERED: IOHEXOL-350 100 ML VIAL IV ONE ×2 (16:43→16:51)
[2023-12-24] MEDS ORDERED: CT SWABBABLE VALVE TRANS SET 1 EA INFUS.SET MC ONE (16:43)
[2023-12-24] MEDS ORDERED: IV NS 0.9% 250 ML IV ONE (16:44)
[2023-12-24 17:12] LABS: CHOLESTEROL 153 mg/dL (<200); HDL CHOLESTEROL 68 mg/dL (40-60); LDL 66 mg/dL (0-99); TRIGLYCERIDES 74 mg/dL (30-150)
[2023-12-24] MEDS: ATORVASTATIN 10 MG TABLET PO SCH (17:51)
[2023-12-24] MEDS: CARVEDILOL 6.25 MG TABLET PO SCH (17:51)
[2023-12-24] MEDS: ASPIRIN 81 MG TAB.CHEW PO SCH (17:51)
[2023-12-24] MEDS: ENOXAPARIN SODIUM 40 MG/0.4 ML DISP.SYRIN SQ SCH (21:40)
[2023-12-25] VITALS (24 sets, daily range): BP systolic 110–147; BP diastolic 55–79; TEMP 97.9–98.7; O2SAT 91–99
[2023-12-25 04:18] LABS: BASOPHILS % (AUTO) 0.4 % (0.0-2.0); EOSINOPHILS # (AUTO) 0.1 K/uL (0.0-0.7); EOSINOPHILS % (AUTO) 0.6 % (0.0-6.0); HEMATOCRIT 47 % (39-51); HEMOGLOBIN 16.4 g/dL (13.5-17.5); LYMPHOCYTES # (AUTO) 1.2 K/uL (0.8-4.8); LYMPHOCYTES % (AUTO) 13.8 % (20.0-44.0); MEAN CORPUSCULAR HEMOGLOBIN 33 PG (26.0-33.0); MEAN CORPUSCULAR HGB CONC 35 g/dl (31.0-36.0); MEAN CORPUSCULAR VOLUME 97 fL (80-96); MONOCYTES # (AUTO) 0.9 K/uL (0.1-1.30); MONOCYTES % (AUTO) 10.4 % (2.0-12.0); NEUTROPHILS # (AUTO) 6.3 K/uL (1.8-8.9); NEUTROPHILS % (AUTO) 74.8 % (43.0-81.0); PLATELET COUNT (AUTO) 126 K/uL (150-450); RED BLOOD CELL COUNT(AUTO) 4.91 MIL/uL (4.5-6.0); RED CELL DISTRIBUTION WIDTH 14.5 % (11.5-15.0); WHITE BLOOD COUNT (AUTO) 8.4 K/uL (4.3-11.0)
[2023-12-25 04:31] LABS: CALCIUM, SERUM 8.7 mg/dL (8.5-10.1); CARBON DIOXIDE 23 mmol/L (21-32); CHLORIDE 106 mmol/L (98-107); GLUCOSE 124 mg/dL (74-106); MAGNESIUM 2.2 mg/dL (1.8-2.4); PHOSPHORUS 3.6 mg/dL (2.5-4.9); POTASSIUM 3.9 mmol/L (3.5-5.1); SODIUM SERUM 139 mmol/L (136-145); UREA NITROGEN, BLOOD 29 mg/dL (7-18)
[2023-12-25 04:41] LABS: CHOLESTEROL 114 mg/dL (<200); CREATINE KINASE, TOTAL 4893 U/L (39-308); HDL CHOLESTEROL 53 mg/dL (40-60); LDL 46 mg/dL (0-99); TRIGLYCERIDES 70 mg/dL (30-150)
[2023-12-25] MEDS: ENOXAPARIN SODIUM 40 MG/0.4 ML DISP.SYRIN SQ SCH (08:38)
[2023-12-25 12:11] LABS: FOLIC ACID 10.6 ng/mL (>3.0)
[2023-12-25] MEDS ORDERED: IV NS 0.9% 250 ML IV ONE (15:13)
[2023-12-25] MEDS ORDERED: CT SWABBABLE VALVE TRANS SET 1 EA INFUS.SET MC ONE (15:13)
[2023-12-25] MEDS ORDERED: IOHEXOL-350 100 ML VIAL IV ONE (15:13)
[2023-12-25] MEDS: METOPROLOL TARTRATE INJ 5 MG/5 ML AMPUL IVP PRN (15:40)
[2023-12-25] MEDS: NITROGLYCERIN 0.4 MG/TAB BOTTLE SL ONE (15:52)
[2023-12-25] MEDS: VANCOMYCIN HCL 1.25 GM in IV D5W 250 ML IV ONE (17:32)
[2023-12-25] MEDS: CEFTRIAXONE 2 G in IV D5W 100 ML IV SCH (17:32)
[2023-12-26] VITALS (7 sets, daily range): BP systolic 116–130; BP diastolic 59–77; TEMP 97.2–98.6; O2SAT 93–99
[2023-12-26] MEDS: VANCOMYCIN 750 MG in IV D5W 250 ML IV SCH (06:00)
[2023-12-26 07:24] LABS: CARBON DIOXIDE 22 mmol/L (21-32); CHLORIDE 108 mmol/L (98-107); CREATININE 0.8 mg/dL (0.6-1.3); GLUCOSE 111 mg/dL (74-106); POTASSIUM 3.7 mmol/L (3.5-5.1); SODIUM SERUM 139 mmol/L (136-145); UREA NITROGEN, BLOOD 28 mg/dL (7-18)
[2023-12-26 08:58] LABS: CREATINE KINASE, TOTAL 2215 U/L (39-308)
[2023-12-26] MEDS: PANTOPRAZOLE 40 MG TABLET.DR PO SCH (08:58)
[2023-12-26] MEDS: VANCOMYCIN 1 GM in IV D5W 250 ML IV SCH (17:29)
[2023-12-27 04:00] VITALS: BP 107/54; TEMP 98.2; O2SAT 95
[2023-12-27 07:00] LABS: CALCIUM, SERUM 8.4 mg/dL (8.5-10.1); CARBON DIOXIDE 22 mmol/L (21-32); CHLORIDE 109 mmol/L (98-107); CREATININE 0.9 mg/dL (0.6-1.3); GLUCOSE 103 mg/dL (74-106); POTASSIUM 3.6 mmol/L (3.5-5.1); SODIUM SERUM 141 mmol/L (136-145); UREA NITROGEN, BLOOD 18 mg/dL (7-18)
[2023-12-27 07:14] LABS: CREATINE KINASE, TOTAL 1259 U/L (39-308)
[2023-12-27 07:30] VITALS: BP 117/65; TEMP 98.1; O2SAT 93
[2023-12-27 16:00] VITALS: BP 115/52; TEMP 98.8; O2SAT 94
[2023-12-27 20:00] VITALS: BP 135/66; TEMP 97.3; O2SAT 96
[2023-12-27 20:12] VITALS: BP 135/66; TEMP 97.3; O2SAT 96
[2023-12-28] VITALS: BP 125/75; TEMP 99.2; O2SAT 94
[2023-12-28 00:05] VITALS: BP 125/75; TEMP 99.2; O2SAT 94
[2023-12-28 04:00] VITALS: BP 103/57; TEMP 98.4; O2SAT 97
[2023-12-28 04:05] VITALS: BP 103/57; TEMP 98.4; O2SAT 97
[2023-12-28 06:39] LABS: CARBON DIOXIDE 22 mmol/L (21-32); CHLORIDE 108 mmol/L (98-107); CREATININE 0.7 mg/dL (0.6-1.3); GLUCOSE 111 mg/dL (74-106); POTASSIUM 3.4 mmol/L (3.5-5.1); SODIUM SERUM 140 mmol/L (136-145); UREA NITROGEN, BLOOD 15 mg/dL (7-18)
[2023-12-28 08:00] VITALS: BP 118/72; TEMP 97.3; O2SAT 94
[2023-12-28] MEDS: POTASSIUM CHLORIDE 20 MEQ TAB.PRT.SR PO SCH (12:09)
[2023-12-28] MEDS: VANCOMYCIN HCL 1.25 GM in IV D5W 250 ML IV SCH (18:23)
[2023-12-28 20:15] VITALS: BP 126/76; TEMP 98.8; O2SAT 94
[2023-12-29] VITALS (7 sets, daily range): BP systolic 112–130; BP diastolic 61–72; TEMP 97.7–99.1; O2SAT 92–95
[2023-12-29 06:57] LABS: CALCIUM, SERUM 8.1 mg/dL (8.5-10.1); CARBON DIOXIDE 22 mmol/L (21-32); CHLORIDE 108 mmol/L (98-107); CREATININE 0.8 mg/dL (0.6-1.3); GLUCOSE 106 mg/dL (74-106); POTASSIUM 3.3 mmol/L (3.5-5.1); SODIUM SERUM 140 mmol/L (136-145); UREA NITROGEN, BLOOD 14 mg/dL (7-18)
[2023-12-29] MEDS: POTASSIUM CHLORIDE 20 MEQ TAB.PRT.SR PO ONE (10:54)
[2023-12-29] MEDS: BLOOD SUGAR DIAGNOSTIC 1 EACH STRIP IN SCH (12:03)
[2023-12-29] MEDS: VANCOMYCIN 1 GM in IV D5W 250ml IV SCH (18:00)
[2023-12-30] VITALS (23 sets, daily range): BP systolic 86–122; BP diastolic 48–83; TEMP 97.7–98.6; O2SAT 92–100
[2023-12-30 06:43] LABS: INR 1.02 (0.91-1.10); PARTIAL THROMBOPLASTIN TIME 33.1 SEC (24.3-34.3); PROTHROMBIN TIME 10.8 SECS (9.2-11.1)
[2023-12-30 07:10] LABS: CALCIUM, SERUM 7.6 mg/dL (8.5-10.1); CARBON DIOXIDE 20 mmol/L (21-32); CHLORIDE 110 mmol/L (98-107); CREATININE 0.7 mg/dL (0.6-1.3); GLUCOSE 117 mg/dL (74-106); POTASSIUM 3.4 mmol/L (3.5-5.1); SODIUM SERUM 140 mmol/L (136-145); UREA NITROGEN, BLOOD 14 mg/dL (7-18)
[2023-12-30] MEDS ORDERED: ANESTHESIA TRAY IN PYXIS 1 EA TRAY MC ONE (07:50)
[2023-12-30] MEDS: POTASSIUM CHLORIDE 20 MEQ TAB.PRT.SR PO ONE ×2 (09:30→22:25)
[2023-12-30] MEDS: VANCOMYCIN HCL 1.25 GM in IV D5W 250 ML IV SCH (17:56)
[2023-12-31] VITALS (13 sets, daily range): BP systolic 99–145; BP diastolic 58–80; TEMP 97.7–98.4; O2SAT 92–97
[2023-12-31 04:47] LABS: BASOPHILS % (AUTO) 0.2 % (0.0-2.0); EOSINOPHILS # (AUTO) 0.5 K/uL (0.0-0.7); EOSINOPHILS % (AUTO) 7.7 % (0.0-6.0); HEMATOCRIT 39 % (39-51); HEMOGLOBIN 13.2 g/dL (13.5-17.5); LYMPHOCYTES # (AUTO) 1.1 K/uL (0.8-4.8); LYMPHOCYTES % (AUTO) 17.4 % (20.0-44.0); MEAN CORPUSCULAR HEMOGLOBIN 33 PG (26.0-33.0); MEAN CORPUSCULAR HGB CONC 34 g/dl (31.0-36.0); MEAN CORPUSCULAR VOLUME 96 fL (80-96); MONOCYTES # (AUTO) 0.6 K/uL (0.1-1.30); MONOCYTES % (AUTO) 10.3 % (2.0-12.0); NEUTROPHILS % (AUTO) 64.4 % (43.0-81.0); PLATELET COUNT (AUTO) 193 K/uL (150-450); RED BLOOD CELL COUNT(AUTO) 4.05 MIL/uL (4.5-6.0); RED CELL DISTRIBUTION WIDTH 13.8 % (11.5-15.0); WHITE BLOOD COUNT (AUTO) 6.1 K/uL (4.3-11.0)
[2023-12-31 04:56] LABS: CALCIUM, SERUM 7.9 mg/dL (8.5-10.1); CARBON DIOXIDE 24 mmol/L (21-32); CHLORIDE 109 mmol/L (98-107); CREATININE 0.8 mg/dL (0.6-1.3); GLUCOSE 109 mg/dL (74-106); POTASSIUM 3.6 mmol/L (3.5-5.1); SODIUM SERUM 140 mmol/L (136-145); UREA NITROGEN, BLOOD 8 mg/dL (7-18)
[2023-12-31 05:02] LABS: INR 1.01 (0.91-1.10); PROTHROMBIN TIME 10.7 SECS (9.2-11.1)
[2023-12-31 05:42] LABS: MAGNESIUM 2.2 mg/dL (1.8-2.4); PHOSPHORUS 2.9 mg/dL (2.5-4.9)
[2023-12-31] MEDS ORDERED: IV NS 0.9% 1,000 ML ONE (07:09)
[2023-12-31] MEDS ORDERED: IV SET PRIMARY PUMP SET 1 EA INFUS.SET MC ONE ×2 (07:10→08:45)
[2023-12-31] MEDS ORDERED: NITROGLYCERIN IN 5 % DEXTROSE 250 ML IV ONE (07:11)
[2023-12-31] MEDS ORDERED: IODIXANOL 150 ML IV ONE (07:11)
[2023-12-31] MEDS ORDERED: LIDOCAINE 1% INJ 50 ML MDV IJ ONE (07:11)
[2023-12-31] MEDS ORDERED: FENTANYL PF 100MCG/2ML AMPUL ONE (08:29)
[2023-12-31] MEDS ORDERED: MIDAZOLAM HCL 2 MG/2ML VIAL ONE (08:29)
[2023-12-31] MEDS ORDERED: EPINEPHRINE (1:10,000) SYRINGE 1 MG/10 ML DISP.SYRIN ONE (08:40)
[2023-12-31] MEDS ORDERED: DOPamine 400MG/D5W 250ML RTU 250 ML ONE (08:43)
[2023-12-31] MEDS: IV NS 0.9% 1,000 ML IV PRN (13:10)
[2023-12-31] MEDS: HYDROCODONE/APAP 5/325MG TABLET PO PRN (23:14)
[2024-01-01] VITALS (7 sets, daily range): BP systolic 111–147; BP diastolic 55–72; TEMP 97.3–98.8; O2SAT 93–96
[2024-01-01 06:27] LABS: BASOPHILS % (AUTO) 0.4 % (0.0-2.0); EOSINOPHILS # (AUTO) 0.4 K/uL (0.0-0.7); EOSINOPHILS % (AUTO) 8.1 % (0.0-6.0); HEMATOCRIT 35 % (39-51); HEMOGLOBIN 12.1 g/dL (13.5-17.5); LYMPHOCYTES # (AUTO) 1.2 K/uL (0.8-4.8); LYMPHOCYTES % (AUTO) 21.8 % (20.0-44.0); MEAN CORPUSCULAR HEMOGLOBIN 33 PG (26.0-33.0); MEAN CORPUSCULAR HGB CONC 34 g/dl (31.0-36.0); MEAN CORPUSCULAR VOLUME 97 fL (80-96); MONOCYTES # (AUTO) 0.6 K/uL (0.1-1.30); MONOCYTES % (AUTO) 11.1 % (2.0-12.0); NEUTROPHILS # (AUTO) 3.2 K/uL (1.8-8.9); NEUTROPHILS % (AUTO) 58.6 % (43.0-81.0); PLATELET COUNT (AUTO) 182 K/uL (150-450); RED BLOOD CELL COUNT(AUTO) 3.64 MIL/uL (4.5-6.0); WHITE BLOOD COUNT (AUTO) 5.5 K/uL (4.3-11.0)
[2024-01-01 06:42] LABS: CARBON DIOXIDE 18 mmol/L (21-32); CHLORIDE 110 mmol/L (98-107); CREATININE 0.8 mg/dL (0.6-1.3); GLUCOSE 112 mg/dL (74-106); POTASSIUM 3.4 mmol/L (3.5-5.1); SODIUM SERUM 141 mmol/L (136-145)
[2024-01-01 07:38] LABS: UREA NITROGEN, BLOOD 14 mg/dL (7-18)
[2024-01-01] MEDS: CARVEDILOL 6.25 MG TABLET PO SCH (08:37)
[2024-01-01] MEDS ORDERED: CARV6.252 PO (09:36)
[2024-01-01] MEDS: POTASSIUM CHLORIDE 20 MEQ TAB.PRT.SR PO SCH (11:16)
== END 2024-01-01 21:20 | DRG 280 ==
LOC: ER 10:23 → MERGE 14:21 → ICU 14:21 → TELE 12-25 12:52 → ICU 12-30 07:08 → TELE 12-30 10:22 → ICU 12-31 09:28 → TELE 12-31 16:29 → MED 01-01 09:44
PROVIDERS: ADMIT Nurse Practitioner Acute Care; ATTEND Internal Medicine
PROC: 4A023N7 Measurement of Cardiac Sampling and Pressure, Left Heart, Percutaneous Approach (ICD-10-PCS; principal; 2023-12-31)
PROC: B211YZZ Fluoroscopy of Multiple Coronary Arteries using Other Contrast (ICD-10-PCS; 2023-12-31)
DX: I25.10 Atherosclerotic heart disease of native coronary artery without angina pectoris (principal); G93.41 Metabolic encephalopathy; I21.A1 Myocardial infarction type 2; I50.23 Acute on chronic systolic (congestive) heart failure; M62.82 Rhabdomyolysis; E87.20 Acidosis, unspecified; N17.9 Acute kidney failure, unspecified; J98.11 Atelectasis; E86.0 Dehydration; E80.6 Other disorders of bilirubin metabolism; E78.5 Hyperlipidemia, unspecified; R74.01 Elevation of levels of liver transaminase levels; I11.0 Hypertensive heart disease with heart failure; R29.6 Repeated falls; R53.1 Weakness; F09 Unspecified mental disorder due to known physiological condition; Z91.199 Patient's noncompliance with other medical treatment and regimen due to unspecified reason; R55 Syncope and collapse; F03.90 Unspecified dementia, unspecified severity, without behavioral disturbance, psychotic disturbance, mood disturbance, and anxiety; S20.221A Contusion of right back wall of thorax, initial encounter; W19.XXXA Unspecified fall, initial encounter; Y93.9 Activity, unspecified; Y92.009 Unspecified place in unspecified non-institutional (private) residence as the place of occurrence of the external cause; R93.89 Abnormal findings on diagnostic imaging of other specified body structures
CPT/HCPCS: 36415; 70450-TC; 70496-TC; 70498-TC; 71045-TC; 72125-TC; 72141-TC; 75574; 76700-TC; 80048-TC; 80061-TC; 80076-TC; 80202-TC; 81001; 82550-TC; 82553; 82607-TC; 82962-TC; 83605-TC; 83735-TC; 83880; 83921; 84100-TC; 84443-TC; 84484-TC; 85025-TC; 85610-TC; 85652-TC; 85730-TC; 86140-TC; 86850-TC; 87040-TC; 87081-TC; 93307-TC; 93312-TC; 94760-TC; 94761-TC; 94799-TC; 97110-TC; 97116-TC; 97530-TC; 97535-TC; A4223; G0378; J0171; J0696; J1265; J1644; J1650; J2250; J2470; J2704; J3010; J3370; J3371; J3490; J7030; J7050; J7060; Q9967

== ENCOUNTER 2024-05-29 03:24 | Emergency (ER) | payer OTHER ==
[~2024-05-29] VITALS: Ht 172.7 cm; Wt 76.7 kg
[~2024-05-29 03:24] MED LIST changes: +CARV6.252 PO
[2024-05-29 03:41] VITALS: TEMP 98.2
[2024-05-29 07:10] VITALS: BP 139/74; O2SAT 98
== END 2024-05-29 07:11 | disposition home or self-care (01) ==
LOC: ER 03:34
DX: S09.90XA Unspecified injury of head, initial encounter (principal); S00.03XA Contusion of scalp, initial encounter; G20.A1 Parkinson's disease without dyskinesia, without mention of fluctuations; F17.200 Nicotine dependence, unspecified, uncomplicated; M19.90 Unspecified osteoarthritis, unspecified site; Z86.73 Personal history of transient ischemic attack (TIA), and cerebral infarction without residual deficits; Z87.442 Personal history of urinary calculi; W22.03XA Walked into furniture, initial encounter; Y93.89 Activity, other specified; Y92.098 Other place in other non-institutional residence as the place of occurrence of the external cause; Y99.8 Other external cause status
CPT/HCPCS: 70450-TC

== ENCOUNTER 2024-08-22 18:36 | Inpatient (IN) | payer OTHER ==
[~2024-08-22] VITALS: Ht 167.6 cm; Wt 79.1 kg
[2024-08-22] MEDS: IV NS 0.9% 1,000 ML BAG IV ONE ×2 (19:05→21:20)
[2024-08-22 19:17] LABS: BASOPHILS # (AUTO) 0.1 K/uL (0.0-0.2); BASOPHILS % (AUTO) 0.6 % (0.0-2.0); HEMATOCRIT 47 % (39-51); HEMOGLOBIN 16.1 g/dL (13.5-17.5); LYMPHOCYTES # (AUTO) 0.7 K/uL (0.8-4.8); LYMPHOCYTES % (AUTO) 7.8 % (20.0-44.0); MEAN CORPUSCULAR HEMOGLOBIN 33 PG (26.0-33.0); MEAN CORPUSCULAR HGB CONC 35 g/dl (31.0-36.0); MEAN CORPUSCULAR VOLUME 95 fL (80-96); MONOCYTES # (AUTO) 0.5 K/uL (0.1-1.30); MONOCYTES % (AUTO) 5.7 % (2.0-12.0); NEUTROPHILS # (AUTO) 8.2 K/uL (1.8-8.9); NEUTROPHILS % (AUTO) 85.9 % (43.0-81.0); PLATELET COUNT (AUTO) 152 K/uL (150-450); RED BLOOD CELL COUNT(AUTO) 4.92 MIL/uL (4.5-6.0); RED CELL DISTRIBUTION WIDTH 14.1 % (11.5-15.0); WHITE BLOOD COUNT (AUTO) 9.5 K/uL (4.3-11.0)
[2024-08-22 19:37] LABS: ALANINE AMINOTRANSFERASE 33 U/L (12-78); ALBUMIN 3.8 g/dL (3.4-5.0); ALKALINE PHOSPHATASE 82 U/L (46-116); ASPARTATE AMINOTRANSFERASE 65 U/L (15-37); BILIRUBIN,DIRECT 0.5 mg/dL (0.0-0.2); BILIRUBIN,TOTAL 2.2 mg/dL (0.2-1.0); CALCIUM, SERUM 9.2 mg/dL (8.5-10.1); CARBON DIOXIDE 26 mmol/L (21-32); CHLORIDE 107 mmol/L (98-107); CREATININE 1.4 mg/dL (0.6-1.3); GLUCOSE 126 mg/dL (74-106); POTASSIUM 3.6 mmol/L (3.5-5.1); SODIUM SERUM 143 mmol/L (136-145); TOTAL PROTEIN, SERUM 7.1 g/dL (6.4-8.2); UREA NITROGEN, BLOOD 38 mg/dL (7-18)
[2024-08-22 19:41] LABS: LACTIC ACID 1.9 mmol/L (0.4-2.0)
[2024-08-22 19:47] LABS: INR 1.05 (0.91-1.10); PARTIAL THROMBOPLASTIN TIME 26.5 SEC (24.3-34.3); PROTHROMBIN TIME 11.1 SECS (9.2-11.1)
[2024-08-22 21:56] LABS: APPEARANCE,URINE CLEAR (CLEAR); BILIRUBIN,URINE NEGATIVE (NEGATIVE); BLOOD, URINE 3+ Ery/uL (NEGATIVE); COLOR,URINE DARK YELLOW (YELLOW); KETONES,URINE NEGATIVE (NEGATIVE); LEUKOCYTE ESTERASE ,URINE NEGATIVE (NEGATIVE); NITRITE, URINE NEGATIVE (NEGATIVE); PROTEIN,URINE 1+ mg/dl (NEGATIVE); UGLUCOSE NEGATIVE (NEGATIVE); UROBILINOGEN,URINE 0.2 EU/dL (0.2)
[2024-08-22] MEDS: ASPIRIN 81 MG TAB.CHEW PO SCH (22:00)
[2024-08-22 22:31] LABS: BACTERIA,URINE Moderate /HPF (None Seen)
[2024-08-22 22:32] LABS: ADD URINE CULTURE YES; SQUAMOUS EPITHELIAL CELL,UR Few /HPF (None Seen)
[2024-08-22] MEDS ORDERED: ASPIRIN 300 MG/SUPP.RECT RC ONE (22:38)
[2024-08-22] MEDS: ASPIRIN 300 MG/SUPP.RECT RC SCH (22:40)
[2024-08-23] VITALS (8 sets, daily range): BP systolic 121–146; BP diastolic 65–75; TEMP 97.5–98.8; O2SAT 93–98
[2024-08-23] MEDS: IV NS 0.9% 1,000 ML IV SCH (02:29)
[2024-08-23] MEDS: CEFTRIAXONE 1GM BAG (ER ONLY) 50 ML IV ONE (02:37)
[2024-08-23] MEDS: CEFTRIAXONE 1 G in IV D5W 50 ML IV SCH (02:46)
[2024-08-23 06:56] LABS: POTASSIUM 3.2 mmol/L (3.5-5.1); THYROID STIMULATING HORMONE 1.39 uIU/mL (0.358-3.74)
[2024-08-23 07:25] LABS: BASOPHILS % (AUTO) 0.2 % (0.0-2.0); EOSINOPHILS # (AUTO) 0.1 K/uL (0.0-0.7); EOSINOPHILS % (AUTO) 1.1 % (0.0-6.0); HEMATOCRIT 43 % (39-51); HEMOGLOBIN 14.5 g/dL (13.5-17.5); LYMPHOCYTES # (AUTO) 1.4 K/uL (0.8-4.8); LYMPHOCYTES % (AUTO) 16.7 % (20.0-44.0); MEAN CORPUSCULAR HEMOGLOBIN 32 PG (26.0-33.0); MEAN CORPUSCULAR HGB CONC 34 g/dl (31.0-36.0); MEAN CORPUSCULAR VOLUME 95 fL (80-96); MONOCYTES # (AUTO) 0.8 K/uL (0.1-1.30); MONOCYTES % (AUTO) 9.2 % (2.0-12.0); NEUTROPHILS # (AUTO) 6.1 K/uL (1.8-8.9); NEUTROPHILS % (AUTO) 72.8 % (43.0-81.0); PLATELET COUNT (AUTO) 125 K/uL (150-450); RED BLOOD CELL COUNT(AUTO) 4.52 MIL/uL (4.5-6.0); RED CELL DISTRIBUTION WIDTH 13.9 % (11.5-15.0); WHITE BLOOD COUNT (AUTO) 8.4 K/uL (4.3-11.0)
[2024-08-23] MEDS: BLOOD SUGAR DIAGNOSTIC 1 EACH STRIP IN SCH (07:59)
[2024-08-23] MEDS: ASPIRIN EC 81 MG TABLET.DR PO SCH (08:24)
[2024-08-23] MEDS: PANTOPRAZOLE 40 MG TABLET.DR PO SCH (08:24)
[2024-08-23] MEDS: POTASSIUM CHLORIDE 20 MEQ TAB.PRT.SR PO SCH (10:41)
[2024-08-23] MEDS ORDERED: CARV12.52 PO (11:18)
[2024-08-23] MEDS ORDERED: LOSA100T31 PO (11:18)
[2024-08-23] MEDS ORDERED: ASPI-1169 PO (11:18)
[2024-08-23] MEDS ORDERED: CARB1TAB39 PO (11:18)
[2024-08-23] MEDS ORDERED: AMLO-213 PO (11:18)
[2024-08-23 13:24] LABS: THYROID STIMULATING HORMONE 1.45 uIU/mL (0.358-3.74)
[2024-08-23] MEDS: ENOXAPARIN SODIUM 40 MG/0.4 ML DISP.SYRIN SQ SCH (14:16)
[2024-08-23] MEDS: ATORVASTATIN 40 MG TABLET PO SCH (21:45)
[2024-08-24 00:35] VITALS: BP 133/62; TEMP 97.5; O2SAT 96
[2024-08-24 02:36] LABS: CREATININE, URINE 50.2 MG/DL (30.0-125.0); URINE TOTAL PROTEIN 27.8 mg/dL (0-11.9)
[2024-08-24 04:20] VITALS: BP 133/62; TEMP 97.5; O2SAT 96
[2024-08-24 07:15] LABS: BASOPHILS % (AUTO) 0.7 % (0.0-2.0); EOSINOPHILS # (AUTO) 0.2 K/uL (0.0-0.7); HEMATOCRIT 41 % (39-51); HEMOGLOBIN 14.1 g/dL (13.5-17.5); LYMPHOCYTES # (AUTO) 1.3 K/uL (0.8-4.8); LYMPHOCYTES % (AUTO) 21.7 % (20.0-44.0); MEAN CORPUSCULAR HEMOGLOBIN 32 PG (26.0-33.0); MEAN CORPUSCULAR HGB CONC 34 g/dl (31.0-36.0); MEAN CORPUSCULAR VOLUME 94 fL (80-96); MONOCYTES # (AUTO) 0.5 K/uL (0.1-1.30); MONOCYTES % (AUTO) 8.8 % (2.0-12.0); NEUTROPHILS % (AUTO) 64.8 % (43.0-81.0); PLATELET COUNT (AUTO) 118 K/uL (150-450); RED BLOOD CELL COUNT(AUTO) 4.35 MIL/uL (4.5-6.0); RED CELL DISTRIBUTION WIDTH 13.6 % (11.5-15.0); WHITE BLOOD COUNT (AUTO) 6.1 K/uL (4.3-11.0)
[2024-08-24 07:30] VITALS: BP 132/68; TEMP 97.1; O2SAT 96
[2024-08-24 07:51] LABS: ALBUMIN 2.5 g/dL (3.4-5.0); BILIRUBIN,TOTAL 1.1 mg/dL (0.2-1.0); CALCIUM, SERUM 7.7 mg/dL (8.5-10.1); CREATININE 0.7 mg/dL (0.6-1.3); MAGNESIUM 1.9 mg/dL (1.8-2.4); PHOSPHORUS 2.2 mg/dL (2.5-4.9); POTASSIUM 3.3 mmol/L (3.5-5.1); TOTAL PROTEIN, SERUM 5.2 g/dL (6.4-8.2)
[2024-08-24] MEDS ORDERED: POTASSIUM CHLORIDE 20 MEQ TAB.PRT.SR PO SCH (10:00)
[2024-08-24] MEDS: POTASSIUM CHLORIDE 20 MEQ TAB.PRT.SR PO SCH (10:10)
[2024-08-24 16:00] VITALS: BP 143/75; TEMP 98.4; O2SAT 94
[2024-08-24] MEDS: K PHOS NEUTRAL 250 MG TABLET PO ONE (16:05)
[2024-08-24] MEDS: CARBIDOPA/LEVA CR 25/100MG 1 TAB.SA PO SCH (16:06)
[2024-08-24 20:00] VITALS: BP 140/74; TEMP 98.8; O2SAT 96
[2024-08-24] MEDS: CARVEDILOL 12.5 MG TABLET PO SCH (21:23)
[2024-08-24] MEDS: ATORVASTATIN 40 MG TABLET PO SCH (21:24)
[2024-08-25] VITALS: BP 138/72; TEMP 98.6; O2SAT 97
[2024-08-25 04:00] VITALS: BP 129/64; TEMP 97.9; O2SAT 93
[2024-08-25 06:10] LABS: FOLIC ACID 4.6 ng/mL (>3.0)
[2024-08-25 07:11] LABS: PTH, INTACT 50 pg/mL (15-65)
[2024-08-25 07:30] VITALS: BP 137/61; TEMP 98.1; O2SAT 93
[2024-08-25 08:00] VITALS: BP 137/61; TEMP 98.1; O2SAT 95
[2024-08-25 08:24] LABS: CALCIUM, SERUM 8.1 mg/dL (8.5-10.1); CARBON DIOXIDE 23 mmol/L (21-32); CHLORIDE 108 mmol/L (98-107); CREATININE 0.8 mg/dL (0.6-1.3); GLUCOSE 95 mg/dL (74-106); PHOSPHORUS 2.8 mg/dL (2.5-4.9); POTASSIUM 3.2 mmol/L (3.5-5.1); SODIUM SERUM 139 mmol/L (136-145); UREA NITROGEN, BLOOD 12 mg/dL (7-18)
[2024-08-25] MEDS: AMLODIPINE BESYLATE 10 MG TABLET PO SCH (08:57)
[2024-08-25] MEDS: LOSARTAN POTASSIUM 50 MG TABLET PO SCH (08:58)
[2024-08-25] MEDS: ASPIRIN 81 MG TAB.CHEW PO SCH (08:58)
[2024-08-25] MEDS: POTASSIUM CHLORIDE 20 MEQ TAB.PRT.SR PO SCH (10:57)
[2024-08-25 20:00] VITALS: BP 125/69; TEMP 99; O2SAT 93
[2024-08-26] VITALS: BP 134/66; TEMP 98.1; O2SAT 91
[2024-08-26 05:00] VITALS: BP 144/67; TEMP 97.7; O2SAT 94
[2024-08-26 07:00] VITALS: BP 140/65; TEMP 98.2; O2SAT 95
[2024-08-26 08:59] VITALS: BP 140/65
[2024-08-26] MEDS: FUROSEMIDE 40 MG/4 ML VIAL IV STA (10:02)
[2024-08-27] MEDS ORDERED: PANTOPRAZOLE 40 MG/PACK PACK PO SCH (07:30)
[2024-08-28 15:09] LABS: VITAMIN B1 THIAMINE,WB 74.9 nmol/L (66.5-200.0)
== END 2024-08-26 18:24 | disposition home health service (06) | DRG 557 ==
LOC: ER 18:40 → TELE 21:54
PROVIDERS: ATTEND Internal Medicine
DX: M62.82 Rhabdomyolysis (principal); N17.0 Acute kidney failure with tubular necrosis; I13.0 Hypertensive heart and chronic kidney disease with heart failure and stage 1 through stage 4 chronic kidney disease, or unspecified chronic kidney disease; I50.22 Chronic systolic (congestive) heart failure; R17 Unspecified jaundice; N39.0 Urinary tract infection, site not specified; N18.31 Chronic kidney disease, stage 3a; I25.10 Atherosclerotic heart disease of native coronary artery without angina pectoris; F02.80 Dementia in other diseases classified elsewhere, unspecified severity, without behavioral disturbance, psychotic disturbance, mood disturbance, and anxiety; G20.A1 Parkinson's disease without dyskinesia, without mention of fluctuations; I69.392 Facial weakness following cerebral infarction; N28.1 Cyst of kidney, acquired; B96.89 Other specified bacterial agents as the cause of diseases classified elsewhere; Z87.442 Personal history of urinary calculi; R53.1 Weakness; E87.6 Hypokalemia
CPT/HCPCS: 36415; 70450-TC; 70551-TC; 71045-TC; 72125-TC; 76700-TC; 80048-TC; 80053-TC; 80061-TC; 80076-TC; 81001; 82550-TC; 82553; 82570-TC; 82607-TC; 82962-TC; 83605-TC; 83690-TC; 83735-TC; 83921; 83970; 84100-TC; 84155; 84165; 84300-TC; 84425; 84443-TC; 84484-TC; 85025-TC; 85730-TC; 87086-TC; 92526; 92611-TC; 97110-TC; 97116-TC; 97530-TC; 97535-TC; A4223; G0378; J0696; J1650; J1938; J7030; J7060